=== PATIENT | male | born 1950 | race Caucasian/White ===

== ENCOUNTER 2018-04-02 12:25 | Day surgery (SDC) | payer OTHER, SELFPAY ==
--- NOTE | 2018-04-02 | PATH_ITS ---
[facility] Accession Number: [id number] . 01 Material submitted: . PART A: TRANSVERSE COLON POLYP AT 65 PART B: TRANSVERSE COLON POLYP 50 . 02 Diagnosis: A. Transverse Colon, Polyp at 65, Biopsy: Colonic mucosa with surface hyperplastic-type changes. Additional levels were examined. Negative for dysplasia and malignancy. . B. Transverse Colon, Polyp at 50, Biopsy: Polypoid granulation tissue, consistent with inflammatory polyp. MRV/04/06/2018 . 02 Electronically signed: . Andreia Olvera MD, Pathologist NPI- [id number] . 01 Gross description: . Received two formalin-filled containers both labeled with the patient's name. . A. In a container labeled transverse colon polyp at 65, the specimen consists of a 0.2 cm portion of tissue. Entirely submitted in cassette A. B. In a container labeled transverse colon polyp at 50, the specimen consists of a 0.3 cm portion of tissue. Entirely submitted in cassette B. ([facility] [place]:[id number]) /[facility] . 02 Pathologist provided ICD-10: K63.5 . 02 CPT . 686472, 141995 Performed at: 01 [facility] [address], [place], [place] [id number] MD Damon Santiago MD Phone: [phone] Performed at: 02 [facility] [place] [address] [place], [place] [id number] MD Andreia Olvera MD Phone: [phone]
[2018-04-02 13:06] VITALS: BP 142/78; PULSE 76; RESP 15; TEMP 36.3; O2SAT 97; BMI 25.9
[2018-04-02] MEDS: SODIUM CHLORIDE 0.9% 1,000 ML 200 ML IV (13:24)
--- NOTE | 2018-04-02 13:37 | PM.HP.1 ---
History of Present Illness Date Patient Seen: 04/02/18 Time Patient Seen: 13:37 Chief complaint: 63092 Colonoscopy Narrative: 68-year-old male who presents for colorectal screening. His last examination was 10 years ago. On further history today he denies any recent gastrointestinal symptoms. No nausea, vomiting, unexplained weight loss, abdominal pain, loss of appetite, change in bowel habits, diarrhea, constipation, melena, hematochezia, or bright red blood per rectum. Patient History Medical History Hypertension (Acute) Peripheral neuropathy (Acute) Surgical History History of colonoscopy (Acute) History of hernia repair (Acute) Social History household members: spouse Smoking Status: Former smoker Family & Social History Social History: household members spouse Tobacco & Substance use: Smoking Status Former smoker Meds Home Medications Medication Instructions Recorded Confirmed Type lisinopril 20 mg PO QDAY #0 06/28/11 04/02/18 History Allergies Allergy/AdvReac Type Severity Reaction Status Date / Time No Known Drug Allergies Allergy Verified 04/02/18 13:05 Review of Systems Review of Systems All systems reviewed & are unremarkable except as noted in HPI and below Exam Vital Signs (past 8 hours): - 04/02/18 13:06 Temperature 97.3 F L Pulse Rate 76 Respiratory Rate 15 Blood Pressure 142/78 H Pulse Oximetry 97 Oxygen Delivery Method Room Air Narrative Exam Narrative: Well-nourished well-developed male in no acute distress. Alert oriented x3. is at the bedside for my entire visit Sclera nonicteric Regular rate rhythm. No wheezes Abdomen soft, nondistended, nontender, no masses Extremities show no clubbing or cyanosis Objective Labs Labs: No recent laboratory or radiographic studies review Assessment & Plan Assessment & Plan narrative: 68-year-old male requiring colorectal screening since it has been 10 years from his last examination. Colonoscopy is once again recommended. Risks, benefits, alternatives were explained. Technical details of the procedure were discussed. Risks including but not limited to sedation, aspiration, bleeding, pain, missed lesion, incomplete examination, need for further radiographic studies, colonic perforation, need for major abdominal surgery, and all attendant risks of major surgery were explained in detail. All questions were answered to his satisfaction, and he voiced understanding. Consent was placed on the chart. We will proceed as above
--- NOTE | 2018-04-02 13:40 | PM.PREOP ---
Pre-operative Note Interval Note History & Physical reviewed/Exam performed by Physician: Yes Changes to H&P: No H&P completed within 30 days and has changed as indicated here:: Patient seen and examined. History and physical examination documented and placed on the chart. Obviously, there have been no changes in the last 15 min. Proceed with colonoscopy today as planned. ASA Class (for procedural sedation): II
--- NOTE | 2018-04-02 14:10 | PM.OP.ENDO ---
Operative Date/Time/Diagnoses Date of procedure: 04/02/18 Time of procedure: 14:10 Pre-op diagnosis: Colorectal screening Post-op diagnosis: other (Diverticulosis and colon polyps) Procedure & Clinicians Study performed: 1. Sedation per surgeon 2. Colonoscopy with hot snare polypectomy and cold forceps polypectomy Same procedure as scheduled: Yes Indications: 68-year-old male who presents for colorectal screening. His last examination was 10 years ago. Colonoscopy is once again recommended. Surgeon: Rodrigo Martinez Procedure Notes SCOAP/Timeout: Yes Procedure in detail: After obtaining informed consent, the patient was brought to the GI suite and placed in the left lateral decubitus position on the examination table. After placement of appropriate monitors, the patient was given incremental doses of Versed and Fentanyl until an appropriate level of sedation was achieved. A time out was held per SCOAP protocol. A digital rectal examination was performed and did not reveal any masses or obstructing lesions. The colonoscope was gently passed into the patient's anus and the entire colon navigated to the level of the cecum with minimal difficulty. Once in the cecum, the scope was withdrawn being sure to go before and beyond all mucosal folds and prominences and get an excellent examination. The findings are noted above. At the level of the rectal vault, the scope was retroflexed and the internal anal canal was examined. The scope was straightened and air aspirated from the colon. The instrument was removed from the patient's body and the procedure was concluded. The patient was allowed to awaken from sedation without difficulty and taken to the post-anesthesia care unit in good condition. Scope withdrawal time: 15:05 min Sedation minutes: 29 Findings: diverticulosis and polyp Specimen(s): other (1. Transverse colon polyp at 65 cm 2. Transverse colon polyp at 50 cm) Complications: none Recommendations: Colonscopy in 5 years, High fiber diet and Will call with biopsy results Plan for aftercare: 1. Discharge home Follow up: as needed Disposition: PACU
[2018-04-02 14:20] VITALS: BP 132/85; PULSE 74; RESP 20; TEMP 36.4; O2SAT 96
[2018-04-02] MEDS: MIDAZOLAM 5 MG/5 ML VIAL IV (14:38)
[2018-04-02] MEDS: fentaNYL 250 MCG/5 ML INJ IV (14:39)
== END 2018-04-02 14:30 | disposition home or self-care (01) ==
PROVIDERS: Family Provider Family Medicine; PCP Family Medicine; Visit Provider Surgery
PROC: 0DJD8ZZ Inspection of Lower Intestinal Tract, Via Natural or Artificial Opening Endoscopic (ICD-10-PCS; CPT 45378; principal; 2018-04-02 14:00)
DX: Z12.11 Encounter for screening for malignant neoplasm of colon (principal); K57.30 Diverticulosis of large intestine without perforation or abscess without bleeding; D12.3 Benign neoplasm of transverse colon; I10 Essential (primary) hypertension; Z87.891 Personal history of nicotine dependence; G62.9 Polyneuropathy, unspecified; K63.5 Polyp of colon
CPT/HCPCS: 45385; 45380; 99152; 99153; J2250; J3010

== ENCOUNTER 2019-01-20 07:25 | Day surgery (SDC) | payer OTHER, SELFPAY ==
--- NOTE | 2019-01-20 | PATH_ITS ---
[facility] Accession Number: [id number] . 01 Material submitted: . PART A: gastrointestinal site - GASTRIC BIOPSIES PART B: gastrointestinal site - GASTRIC EROSIONS BIOPSY PART C: gastrointestinal site - GASTRIC POLYPS BIOPSY . 01 Clinical history: . A. R/O CELIAC SPRUE B. R/O H. PYLORI . 02 Diagnosis: A. Designated Gastric, Biopsies: Duodenal mucosa with gastric heterotopia. Negative for intraepithelial lymphocytosis. Negative for dysplasia and malignancy. . B. Stomach, Erosions, Biopsy: Body-type mucosa with no diagnostic abnormality. Negative for Helicobacter by immunohistochemistry. Negative for intestinal metaplasia by alcian blue stain. Negative for dysplasia and malignancy. . C. Stomach, Polyps, Biopsy: Fundic gland polyp. No evidence of Helicobacter organisms on H/E stain. Negative for intestinal metaplasia. Negative for dysplasia and malignancy. [facility] 01/22/2019 1534 Local . 02 Electronically signed: . Andreia Olvera MD, Pathologist NPI- [id number] . 01 Gross description: . Part A: GASTRIC BIOPSIES: Received in formalin are 3 fragment(s) of pacheco, soft tissue measuring 0.3 x 0.2 x 0.2 cm to 0.2 x 0.2 x 0.1 cm submitted entirely in 1 cassette(s) Part B: GASTRIC EROSIONS BIOPSY: Received in formalin are 2 fragment(s) of pacheco, soft tissue measuring 0.3 x 0.2 x 0.2 cm to 0.1 x 0.1 x 0.1 cm submitted entirely in 1 cassette(s) Part C: GASTRIC POLYPS BIOPSY: Received in formalin is 1 fragment(s) of pacheco, soft tissue measuring 0.3 x 0.3 x 0.2 cm submitted entirely in 1 cassette(s) /[facility] 01/20/2019 2144 Local . 02 Microscopic: . B. An immunohistochemical stain was performed to evaluate for Helicobacter organisms and is negative. An alcian blue stain was performed to evaluate for intestinal metaplasia and is negative. Both control stains showed appropriate reactivity. . * This test was developed and its performance characteristics determined by [facility]. It has not been cleared or approved by the U.S. Food and Drug Administration. The FDA has determined that such clearance or approval is not necessary. This test is used for clinical purposes. It should not be regarded as investigational or for research. . 02 Pathologist provided ICD-10: R14.0, R19.7 . 02 CPT . 108295, 701005, 954131, 324807, [id number] Performed at: 01 [facility] [address] [id number] MD Damon Santiago MD Phone: [phone] Performed at: 02 [facility] [address] [place], [place] [id number] MD Andreia Olvera MD Phone: [phone]
[2019-01-20 07:40] VITALS: BP 150/78; PULSE 74; RESP 16; TEMP 36.1; O2SAT 96; BMI 27.9
[2019-01-20] MEDS: SODIUM CHLORIDE 0.9% 1,000 ML 200 ML IV (08:30)
--- NOTE | 2019-01-20 08:34 | PM.HP.1 ---
History of Present Illness History of Present Illness Chief complaint: [id number] Patient History Family & Social History Social History: household members spouse Tobacco & Substance use: Smoking Status Former smoker Meds Home Medications and Allergies Home Medications Medication Instructions Recorded Confirmed Type lisinopril 40 mg PO QDAY #0 06/28/11 01/20/19 History amlodipine 5 mg PO DAILY 01/20/19 01/20/19 History ascorbic acid (vitamin C) [Vitamin 500 mg PO DAILY 01/20/19 01/20/19 History C] calcium carbonate 260 mg PO DAILY 01/20/19 01/20/19 History cholecalciferol (vitamin D3) 3,000 unit PO DAILY 01/20/19 01/20/19 History [Vitamin D3] cyanocobalamin (vitamin B-12) mcg PO DAILY 01/20/19 History [Vitamin B-12] diphenhydramine HCl [Benadryl] 25 mg PO BEDTIME PRN 01/20/19 01/20/19 History loperamide 4 mg BID 01/20/19 01/20/19 History zinc sulfate 220 mg PO DAILY 01/20/19 01/20/19 History Allergies Allergy/AdvReac Type Severity Reaction Status Date / Time No Known Drug Allergies Allergy Verified 01/20/19 07:38 Review of Systems Review of Systems ROS Unobtainable: All systems reviewed & are unremarkable except as noted in HPI and below Exam Vital Signs (past 8 hours): - 01/20/19 07:40 Temperature 96.9 F L Pulse Rate 74 Respiratory Rate 16 Blood Pressure 150/78 H Pulse Oximetry 96 Oxygen Delivery Method Room Air Narrative Exam Narrative: Awake alert oriented x3, no acute distress, lungs clear, heart regular rate and rhythm, lower extremities without edema Assessment & Plan Assessment & Plan narrative: Bloating and diarrhea, for EGD
[2019-01-20] MEDS: MIDAZOLAM 5 MG/5 ML VIAL IV (08:45)
--- NOTE | 2019-01-20 08:45 | PM.OP.ENDO ---
Operative Date/Time/Diagnoses Date of procedure: 01/20/19 Procedure & Clinicians Study performed: EGD WITH BIOPSY Moderate conscious sedation was administered by the endoscopy nurse and supervised by the endoscopist. The following parameters were monitored: Oxygen saturation, heart rate, blood pressure, and response to care. Sedation dose: 4 mg midazolam, 100 mcg fentanyl Indications: Chronic diarrhea, bloating Procedure Notes Procedure in detail: Prior to the procedure, history and physical was performed, and patient medications and allergies were reviewed. Preprocedure nursing history and assessment was reviewed. Patient identification and proposed procedure were verified by the physician and nurse in the procedure room. The physical status of the patient was reassessed after the procedure. After informed consent was obtained including risks, benefits, and alternatives, the scope was passed under direct vision. Throughout the procedure, the patient's blood pressure, pulse, and oxygen saturations were monitored continuously. The upper endoscope was introduced through the mouth and advanced to the 2nd portion of the duodenum. Retroflexion was performed in the stomach. The patient tolerated the procedure well. The entire examined esophagus was normal appearing. The Z-line was regular and was located at 44 cm. A few small sessile polyps were noted in the fundus and body of the stomach. This was biopsied. A single gastric erosion with associated erythema was located in the antrum. This was biopsied to rule out H pylori A 12 mm submucosal nodule was seen in the antrum at the anterior wall. This was probed with the biopsy forceps and seemed to demonstrate a pillow sign. The entire examined duodenum was normal appearing. The ampulla was visualized and appeared normal. Biopsies were taken from the duodenum to rule out celiac sprue Impression: Normal esophagus and Z-line A few small gastric polyps, most likely representing fundic gland polyps. Biopsied Single gastric erosion. Biopsied. 12 mm antral submucosal nodule. Most likely represents a lipoma. Cannot rule out stromal tumor or other submucosal mass. Sedation minutes: 10 Complications: other (EBL minimal. No complications) Post-procedure Plan for aftercare: Follow-up pathology results Consider EUS for further evaluation of submucosal lesion in the antrum of the stomach Resume home medications Resume previous diet Follow-up in GI clinic Discharged home with escort
[2019-01-20 08:52] VITALS: BP 129/74; PULSE 67; RESP 14; TEMP 36.8; O2SAT 95
[2019-01-20] MEDS: fentaNYL 250 MCG/5 ML INJ 100 MCG IV (08:53)
[2019-01-20 08:57] VITALS: BP 119/78; PULSE 70; RESP 14; TEMP 36.8; O2SAT 96
[2019-01-20 09:01] VITALS: BP 133/73; PULSE 72; RESP 17; TEMP 36.8; O2SAT 94
[2019-01-20 09:13] VITALS: BP 131/80; PULSE 72; RESP 16; TEMP 35.9; O2SAT 93
== END 2019-01-20 09:25 | disposition home or self-care (01) ==
PROVIDERS: PCP Family Medicine; Visit Provider Internal Medicine
PROC: 0DJ08ZZ Inspection of Upper Intestinal Tract, Via Natural or Artificial Opening Endoscopic (ICD-10-PCS; CPT 43235; principal; 2019-01-20 08:30)
DX: R19.7 Diarrhea, unspecified (principal); R14.0 Abdominal distension (gaseous); I10 Essential (primary) hypertension; K31.7 Polyp of stomach and duodenum; Q43.8 Other specified congenital malformations of intestine
CPT/HCPCS: 43239; J2250; J3010

== ENCOUNTER → 2020-08-18 06:51 | Outpatient (CLI) | payer OTHER, SELFPAY ==
[2020-08-18 08:17] LABS: Add Manual Diff / Slide Review NO; Basophils Absolute Auto 100 /uL (0-100); Basophils Percent Auto 1.2 % (0-2); Eosinophils Absolute Auto 300 /uL (0-450); Eosinophils Percent Auto 4.7 % (2-4); Hematocrit 47.5 % (41-53); Hemoglobin 16.2 g/dL (13.5-17.5); Lymphocytes Absolute Auto 2600 /uL (1100-4500); Lymphocytes Percent Auto 37.5 % (25-40); Mean Corpuscular HGB Conc 34.1 % (30-36); Mean Corpuscular Hemoglobin 31.9 PG (26-34); Mean Corpuscular Volume 93.5 fL (80-100); Monocytes Absolute Auto 700 /uL (0-900); Monocytes Percent Auto 9.7 % (3-14); Neutrophils Absolute Auto 3300 /uL (1500-7000); Neutrophils Percent Auto 46.9 % (50-75); Platelet Count 199 X10^3/uL (150-400); Red Blood Cell Count 5.08 X10^6/uL (4.5-5.9); Red Cell Distribution Width 13.3 % (11.6-14.8); White Blood Cell Count 6.9 X10^3/uL (4.5-11.0)
[2020-08-18 09:47] LABS: Alanine Aminotransferase 37 IU/L (<50); Albumin 4.3 g/dL (3.5-5.0); Albumin Globulin Ratio 1.5 (1.0-2.8); Alkaline Phosphatase 72 U/L (38-126); Aspartate Aminotransferase 35 IU/L (17-59); Bilirubin Total 0.9 mg/dL (0.2-1.3); Blood Urea Nitrogen 13 mg/dL (9-20); Calcium 9.7 mg/dL (8.4-10.2); Carbon Dioxide 28 mmol/L (22-32); Chloride 107 mmol/L (98-107); Cholesterol 184 mg/dL (140-199); Estimated Glomerular Filt Rate > 60.0 mL/min (>60); Globulin 2.9 g/dL (1.7-4.1); Glucose 112 mg/dL (80-110); HDL Cholesterol 45 mg/dL (40-60); HEMOLYSIS < 15 (0-50); LDL Cholesterol Calculated 111 mg/dL (<100); Potassium 4.5 mmol/L (3.4-5.1); Sodium 141 mmol/L (137-145); Total Protein 7.2 g/dL (6.3-8.2); Triglycerides 139 mg/dL (35-150)
[2020-08-18 09:59] LABS: Vitamin D 25 Hydroxy (D3) 39.4 ng/mL (30.0-100.0)
[2020-08-18 10:16] LABS: Prostate Specific Antigen Scrn 0.715 ng/mL (0.1-4.0)
[2020-08-18 10:27] LABS: Microalbumi Creatinin Ratio Ur 6.8 ug/mg CR (<30); Microalbumin Urine Random 0.7 mg/dL (0-1.6)
== END ==
PROVIDERS: PCP Family Medicine; Referring Provider Family Medicine; Visit Provider Family Medicine
DX: E55.9 Vitamin D deficiency, unspecified (principal); I10 Essential (primary) hypertension; K63.5 Polyp of colon; Z12.5 Encounter for screening for malignant neoplasm of prostate
CPT/HCPCS: 36415; 80053; 80061; 82043; 82306; 82570; 85025; G0103

== ENCOUNTER 2020-11-05 15:46 | Emergency (ER) | payer OTHER, SELFPAY ==
[2020-11-05] VITALS (8 sets, daily range): BP systolic 157–186; BP diastolic 77–86; PULSE 61–78; RESP 20; TEMP 37; O2SAT 95–99
--- NOTE | 2020-11-05 16:28 | DI.CT.S_ITS ---
PROCEDURE: CT KIDNEY URETER BLADDER (KUB) INDICATIONS: left flank pain TECHNIQUE: Axial sections were acquired from the lung bases to the pubic symphysis. Coronal and sagittal reformats were performed. For radiation dose reduction, the following was used: automated exposure control, adjustment of mA and/or kV according to patient size. COMPARISON: None. FINDINGS: Image quality: Excellent. Lung bases: Unremarkable. Heart: No significant findings. URINARY: Right Kidney: No stones or hydronephrosis. Along the periphery of the right kidney, there is subcortical calcification seen, as on series 4, image 45. Right Ureter: No hydroureter. Left Kidney: There is mild left-sided hydronephrosis. There is a nonobstructing left-sided kidney stone seen inferiorly that measures up to 1.9 cm, as on series 2, image 45. At the superior pole of the left kidney, there is a water density cyst that measures 2.5 cm. Left Ureter: There is an obstructing stone seen involving the distal left ureter, as on series 2, image 86 and on series 4, image 43, measuring 2 mm. There is associated mild left-sided hydroureter. Bladder: Normal wall thickness. No stones. ABDOMEN: Liver: Unremarkable. Gallbladder: Unremarkable. Biliary ducts: Unremarkable. Pancreas: Unremarkable. Spleen: Unremarkable. Incidental note is made of an accessory splenule along the anterior aspect of the primary spleen. Adrenal Glands: Unremarkable. Stomach and Bowel: Stomach, small bowel loops, and colon are unremarkable. A normal appendix is incidentally noted. Minimal distal colonic diverticulosis is seen, without findings of active diverticulitis. Peritoneum: No abnormal intraperitoneal fluid. No free air. Ventral Wall: No hernia. Abdominal Nodes: No enlarged retroperitoneal or mesenteric lymph nodes. Vessels: Aorta and inferior vena cava are normal in size. PELVIS: Pelvic Organs: Unremarkable. Pelvic Nodes: Unremarkable. Miscellaneous: No inguinal hernias are seen. Bones: Unremarkable. IMPRESSION: 2 mm obstructing stone seen at the left ureterovesicular junction, with associated mild left-sided hydroureter and hydronephrosis. There is a 1.9 cm nonobstructing left-sided kidney stone seen inferiorly. Incidental note is made of: Accessory splenule Normal appendix Diverticulosis, without active diverticulitis Dictated by: Severino Nolasco M.D. on 11/05/2020 at 16:33 Approved by: Severino Nolasco M.D. on 11/05/2020 at 16:37
[2020-11-05 16:35] LABS: Add Manual Diff / Slide Review NO; Basophils Absolute Auto 100 /uL (0-100); Basophils Percent Auto 0.9 % (0-2); Eosinophils Absolute Auto 300 /uL (0-450); Eosinophils Percent Auto 2.4 % (2-4); Hematocrit 47.5 % (41-53); Hemoglobin 16.1 g/dL (13.5-17.5); Lymphocytes Absolute Auto 2200 /uL (1100-4500); Lymphocytes Percent Auto 17.7 % (25-40); Mean Corpuscular Hemoglobin 31.5 PG (26-34); Mean Corpuscular Volume 92.9 fL (80-100); Monocytes Absolute Auto 900 /uL (0-900); Monocytes Percent Auto 7.4 % (3-14); Neutrophils Absolute Auto 9000 /uL (1500-7000); Neutrophils Percent Auto 71.6 % (50-75); Platelet Count 229 X10^3/uL (150-400); Red Blood Cell Count 5.11 X10^6/uL (4.5-5.9); Red Cell Distribution Width 12.9 % (11.6-14.8); White Blood Cell Count 12.6 X10^3/uL (4.5-11.0)
[2020-11-05] MEDS: ONDANSETRON 4 MG/2 ML INJ IV (16:42)
[2020-11-05] MEDS: KETOROLAC 30 MG/ML VIAL 15 MG IV (16:42)
[2020-11-05 16:46] LABS: Alanine Aminotransferase 34 IU/L (<50); Albumin 4.9 g/dL (3.5-5.0); Albumin Globulin Ratio 1.4 (1.0-2.8); Alkaline Phosphatase 95 U/L (38-126); Aspartate Aminotransferase 31 IU/L (17-59); BUN Creatinine Ratio 21.8 (6-22); Bilirubin Total 0.6 mg/dL (0.2-1.3); Blood Urea Nitrogen 17 mg/dL (9-20); Calcium 9.9 mg/dL (8.4-10.2); Carbon Dioxide 27 mmol/L (22-32); Chloride 105 mmol/L (98-107); Estimated Glomerular Filt Rate > 60.0 mL/min (>60); Globulin 3.5 g/dL (1.7-4.1); Glucose 138 mg/dL (80-110); HEMOLYSIS 20 (0-50); Lipase 45 U/L (23-300); Sodium 142 mmol/L (137-145); Total Protein 8.4 g/dL (6.3-8.2)
[2020-11-05 17:12] LABS: Appearance Urine UA SL CLOUDY; Bilirubin Urine UA NEGATIVE (NEGATIVE); Color Urine UA YELLOW; Glucose Urine UA NEGATIVE (Negative); Ketones Urine UA NEGATIVE (NEGATIVE); Leukocyte Esterase Urine UA NEGATIVE (NEGATIVE); Nitrite Urine UA NEGATIVE (Negative); Occult Blood Urine UA 3+ (Negative); Protein Urine UA 1+ (Negative); Specific Gravity Urine UA 1.025 (1.000-1.035); Urobilinogen Urine UA 0.2 E.U./dL (0.2); pH Urine UA 5.5 (4.5-8.0)
--- NOTE | 2020-11-05 17:17 | ED.ABDPAIN ---
HPI - Abdominal Pain <HERNAN Amado - Last Filed: 11/05/20 20:25> General Chief Complaint: Abdominal Pain Stated Complaint: kidney stones Time Seen by Provider: 11/05/20 16:55 Source: patient and family Mode of arrival: Family Vehicle Limitations: no limitations History of Present Illness HPI narrative: 70-year-old male with history of hypertension presents to the ED for left-sided flank pain that started approximately 30 minutes after he voided and discovered blood in his urine. He reports that this started at 1:00 p.m. today, and then he had 1 episode of nausea, vomiting, and diarrhea. He has had persistent left posterior flank pain since this started and is concerned about kidney stones. He denies ever having history of kidney stones in the past, he denies having any chest pain, he denies shortness of breath, he denied any blood in his stool, and reports that diarrhea at is not a new thing for him. He denies having any recent fever, chills, or illnesses. He reports that his pain was an 8 or 9/10 until he received Toradol, and then it decreased to a 2 or 3/10 emergency department. Related Data Home Medications Medication Instructions Recorded Confirmed ascorbic acid (vitamin C) 500 mg 500 mg PO DAILY 01/20/19 06/29/20 tablet (Vitamin C) calcium carbonate 260 mg calcium 260 mg PO DAILY 01/20/19 06/29/20 (650 mg) chewable tablet cholecalciferol (vitamin D3) 50 3,000 unit PO DAILY 01/20/19 06/29/20 mcg (2,000 unit) tablet (Vitamin D3) cyanocobalamin (vitamin B-12) mcg PO DAILY 01/20/19 06/29/20 1,000 mcg tablet (Vitamin B-12) diphenhydramine HCl 25 mg capsule 25 mg PO BEDTIME PRN 01/20/19 06/29/20 (Benadryl) loperamide 2 mg tablet 4 mg BID 01/20/19 06/29/20 zinc sulfate 50 mg zinc (220 mg) 220 mg PO DAILY 01/20/19 06/29/20 capsule Previous Rx's Medication Instructions Recorded amlodipine 5 mg tablet 5 mg PO DAILY #90 tab 09/28/20 lisinopril 40 mg tablet 40 mg PO DAILY #90 tab 09/28/20 sildenafil 50 mg tablet 50 mg PO DAILY PRN #30 tab 09/29/20 ondansetron HCl 4 mg tablet 4 mg PO Q8H #10 tab 11/05/20 (Zofran) tamsulosin 0.4 mg capsule 0.4 mg PO DAILY #30 cap 11/05/20 Allergies Allergy/AdvReac Type Severity Reaction Status Date / Time No Known Drug Allergies Allergy Verified 06/29/20 14:30 Review of Systems <HERNAN Amado - Last Filed: 11/05/20 20:25> Review of Systems Narrative: General: denies fever, chills Head/Neck: denies headache, neck pain Eyes: denies visual changes, eye pain Cardio: denies chest pain, palpitations Respiratory: denies shortness of breath, cough GI: endorses left flank pain and nausea, no vomiting since 1329 : denies dysuria, hematuria MSK: denies joint pain, muscle weakness Skin: denies rash, itching Neuro: denies numbness, tingling Patient History <HERNAN Amado - Last Filed: 11/05/20 20:25> Medical History (Updated 11/05/20 @ 20:25 by HERNAN Amado) Chicken pox (~1957) Colon polyps (~2018) Erectile dysfunction Fractures Hearing loss (~2019) Hypertension (~1988) Kidney stone on left side Mumps (~1969) Peripheral neuropathy Seasonal allergies Tinnitus (~2016) Vitamin D deficiency Surgical History Anesthesia History of colonoscopy History of hernia repair (~1992) Family History Father Cancer Mother Cancer Social History household members: spouse Smoking Status: Former smoker Smoking Status: Former smoker alcohol intake frequency: 0-2 drinks per day Substance Use Type: does not use Exam <HERNAN Amado - Last Filed: 11/05/20 20:25> Narrative Exam Narrative: Independently reviewed vitals signs and nursing notes. General: Awake, alert, nontoxic, no cardiorespiratory distress Head/Neck: Atraumatic, neck full range of motion Eyes: EOMI, conjunctiva normal Nose: nares patent, no rhinorrhea Mouth/Throat: moist mucus membranes, posterior pharynx normal, no oral lesions Cardio: Regular rate and rhythm, no peripheral edema Respiratory: respirations unlabored without wheezing, stridor, or rales. No retractions. GI: Abdomen soft, right lower quadrant mildly tender to palpation, left CTA tenderness, no right CVA tenderness, no masses MSK: Moves all extremities, neurovascularly intact Skin: Normal capillary refill, no rash Neuro: Normal speech and cognition, normal gait Initial Vital Signs Initial Vital Signs: Vital Signs Pulse Rate 68 11/05/20 16:09 Blood Pressure 186/86 H 11/05/20 16:09 Pulse Oximetry 98 11/05/20 16:09 <Sharon Sloan DO - Last Filed: 11/10/20 07:21> Initial Vital Signs Initial Vital Signs: Vital Signs Pulse Rate 68 11/05/20 16:09 Blood Pressure 186/86 H 11/05/20 16:09 Pulse Oximetry 98 11/05/20 16:09 Course <HERNAN Amado - Last Filed: 11/05/20 20:25> Orders Ordered: Discontinued Medications Ketorolac Tromethamine (Ketorolac 30 Mg/Ml Vial) 15 mg IV NOW ONE Stop: 11/05/20 16:35 Last Admin: 11/05/20 16:42 Dose: 15 mg Documented by: JENARO Ondansetron HCl (Ondansetron 4 Mg/2 Ml Inj) 4 mg IV NOW ONE Stop: 11/05/20 16:28 Last Admin: 11/05/20 16:42 Dose: 4 mg Documented by: JENARO Ondansetron HCl (Ondansetron 4 Mg Odt Prepack) 1 bottle MISC SEEINSTR ONE Stop: 11/05/20 18:35 Last Admin: 11/05/20 19:13 Dose: 1 bottle Documented by: JENARO Tamsulosin HCl (Tamsulosin 0.4 Mg Capsule) 0.4 mg PO NOW ONE Stop: 11/05/20 18:34 Last Admin: 11/05/20 19:13 Dose: 0.4 mg Documented by: JENARO Consultations Consultation #1: Dr. Rios with urology was consulted for his left kidney stones. She would like patient to be sent with a strainer and a referral put into [facility] kidney stone clinic where he will be seen early this week. Vital Signs Vital signs: Vital Signs - 8 hr 11/05/20 16:09 11/05/20 16:29 11/05/20 16:30 Temperature 98.6 F Pulse Rate 68 63 61 Respiratory Rate 20 Blood Pressure 186/86 H 186/86 H Pulse Oximetry 98 97 99 11/05/20 17:00 11/05/20 17:31 11/05/20 18:00 Temperature Pulse Rate 68 78 69 Respiratory Rate Blood Pressure Pulse Oximetry 98 96 95 11/05/20 18:28 11/05/20 18:30 Temperature Pulse Rate 69 69 Respiratory Rate Blood Pressure 157/77 H 157/77 H Pulse Oximetry 96 97 <Sharon Sloan, - Last Filed: 11/10/20 07:21> Orders Ordered: Discontinued Medications Ketorolac Tromethamine (Ketorolac 30 Mg/Ml Vial) 15 mg IV NOW ONE Stop: 11/05/20 16:35 Last Admin: 11/05/20 16:42 Dose: 15 mg Documented by: JENARO Ondansetron HCl (Ondansetron 4 Mg/2 Ml Inj) 4 mg IV NOW ONE Stop: 11/05/20 16:28 Last Admin: 11/05/20 16:42 Dose: 4 mg Documented by: JENARO Ondansetron HCl (Ondansetron 4 Mg Odt Prepack) 1 bottle MISC SEEINSTR ONE Stop: 11/05/20 18:35 Last Admin: 11/05/20 19:13 Dose: 1 bottle Documented by: JENARO Tamsulosin HCl (Tamsulosin 0.4 Mg Capsule) 0.4 mg PO NOW ONE Stop: 11/05/20 18:34 Last Admin: 11/05/20 19:13 Dose: 0.4 mg Documented by: JENARO Vital Signs Vital signs: Vital Signs - 8 hr 11/05/20 16:09 11/05/20 16:29 11/05/20 16:30 Temperature 98.6 F Pulse Rate 68 63 61 Respiratory Rate 20 Blood Pressure 186/86 H 186/86 H Pulse Oximetry 98 97 99 11/05/20 17:00 11/05/20 17:31 11/05/20 18:00 Temperature Pulse Rate 68 78 69 Respiratory Rate Blood Pressure Pulse Oximetry 98 96 95 11/05/20 18:28 11/05/20 18:30 Temperature Pulse Rate 69 69 Respiratory Rate Blood Pressure 157/77 H 157/77 H Pulse Oximetry 96 97 MDM - Abdominal Pain <HERNAN Amado - Last Filed: 11/05/20 20:25> Lab Data Result diagrams: 11/05/20 16:20 11/05/20 16:20 Labs: Lab Results 11/05/20 11/05/20 11/05/20 Range/Units 16:20 16:20 16:25 WBC 12.6 H (4.5-11.0) X10^3/uL RBC 5.11 (4.5-5.9) X10^6/uL Hgb 16.1 (13.5-17.5) g/dL Hct 47.5 (41-53) % MCV 92.9 (80-100) fL MCH 31.5 (26-34) PG MCHC 34.0 (30-36) % RDW 12.9 (11.6-14.8) % Plt Count 229 (150-400) X10^3/uL Neut % (Auto) 71.6 (50-75) % Lymph % (Auto) 17.7 L (25-40) % [place] % (Auto) 7.4 (3-14) % Eos % (Auto) 2.4 (2-4) % Baso % (Auto) 0.9 (0-2) % Neut # (Auto) 9000 H (1039-9405) /uL Lymph # (Auto) 2200 (8925-8607) /uL [place] # (Auto) 900 (0-900) /uL Eos # (Auto) 300 (0-450) /uL Baso # (Auto) 100 (0-100) /uL Sodium 142 (137-145) mmol/L Potassium 4.0 (3.4-5.1) mmol/L Chloride 105 (98-107) mmol/L Carbon Dioxide 27 (22-32) mmol/L BUN 17 (9-20) mg/dL Creatinine 0.78 (0.66-1.25) mg/dL Estimated GFR > 60.0 (>60) mL/min BUN/Creatinine Ratio 21.8 (6-22) Glucose 138 H (80-110) mg/dL Calcium 9.9 (8.4-10.2) mg/dL Total Bilirubin 0.6 (0.2-1.3) mg/dL AST 31 (17-59) IU/L ALT 34 (<50) IU/L Alkaline Phosphatase 95 (38-126) U/L Total Protein 8.4 H (6.3-8.2) g/dL Albumin 4.9 (3.5-5.0) g/dL Globulin 3.5 (1.7-4.1) g/dL Albumin/Globulin Ratio 1.4 (1.0-2.8) Lipase 45 (23-300) U/L Urine Color Yellow Urine Appearance Sl cloudy Urine pH 5.5 (4.5-8.0) Ur Specific [place] 1.025 (1.000-1.035) Urine Protein 1+ H (Negative) Urine Glucose (UA) Negative (Negative) g/dL Urine Ketones Negative (NEGATIVE) Urine Occult Blood 3+ H (Negative) Urine Nitrate Negative (Negative) Urine Bilirubin Negative (NEGATIVE) Urine Urobilinogen 0.2 (0.2) E.U./dL Ur Leukocyte Esterase Negative (NEGATIVE) Urine RBC >100/hpf H (0-5/HPF) Urine WBC 0-1/hpf (0-5/HPF) Ur Squamous Epith Cells 5-10 /hpf H (0-5/HPF) Amorphous Sediment 2+ Urine Bacteria None seen (None) Ur Culture Indicated? Cult not indicated Imaging Data CT scan - abdomen/pelvis: Radiologist's Impression: PROCEDURE:? CT KIDNEY URETER BLADDER (KUB) ? INDICATIONS:? left flank pain ? TECHNIQUE:? Axial sections were acquired from the lung bases to the pubic symphysis.? Coronal and sagittal reformats were performed.? For radiation dose reduction, the following was used: ?automated exposure control, adjustment of mA and/or kV according to patient size.? ? COMPARISON:? ? None. ? FINDINGS:? Image quality:? Excellent.? ? Lung bases:? Unremarkable.? ? Heart:? No significant findings. ? URINARY: Right Kidney: ? No stones or hydronephrosis.? Along the periphery of the right kidney, there is subcortical calcification seen, as on series 4, image 45. Right Ureter:? No hydroureter.? ? Left Kidney:? There is mild left-sided hydronephrosis.? There is a nonobstructing left-sided kidney stone seen inferiorly that measures up to 1.9 cm, as on series 2, image 45. At the superior pole of the left kidney, there is a water density cyst that measures 2.5 cm. Left Ureter:? There is an obstructing stone seen involving the distal left ureter, as on series 2, image 86 and on series 4, image 43, measuring 2 mm.? There is associated mild left-sided hydroureter.? ? Bladder:? Normal wall thickness. No stones. ? ? ? ABDOMEN: Liver:? Unremarkable.? ? Gallbladder:? Unremarkable.? ? Biliary ducts:? Unremarkable.? ? Pancreas:? Unremarkable.? ? Spleen:? Unremarkable.? ? Incidental note is made of an accessory splenule along the anterior aspect of the primary spleen. Adrenal Glands:? Unremarkable.? ? ? Stomach and Bowel:? Stomach, small bowel loops, and colon are unremarkable.? A normal appendix is incidentally noted.? Minimal distal colonic diverticulosis is seen, without findings of active diverticulitis. Peritoneum:? No abnormal intraperitoneal fluid.? No free air.? ? Ventral Wall: ? No hernia.? Abdominal Nodes:? No enlarged retroperitoneal or mesenteric lymph nodes.? Vessels:? Aorta and inferior vena cava are normal in size.? ? PELVIS: Pelvic Organs:? Unremarkable.? ? Pelvic Nodes: Unremarkable. Miscellaneous: No inguinal hernias are seen. ? ? ? Bones:? Unremarkable. ? ? IMPRESSION:? ? 2 mm obstructing stone seen at the left ureterovesicular junction, with associated mild left-sided hydroureter and hydronephrosis. ? There is a 1.9 cm nonobstructing left-sided kidney stone seen inferiorly.? ? Incidental note is made of: Accessory splenule Normal appendix Diverticulosis, without active diverticulitis ? Dictated by: Severino Nolasco M.D. on 11/05/2020 at 16:33 ? ? Approved by: Severino Nolasco M.D. on 11/05/2020 at 16:37 ? MDM Narrative Medical decision making narrative: This is pleasant 70-year-old male with history of hypertension presents to the ED for left-sided flank pain and hematuria that started at 1300. His history and exam were suggestive of possible kidney stones, a CT KUB noncontrast was obtained showing mild left-sided hydronephrosis, a nonobstructing left-sided kidney stone seen inferiorly that measures up to 1.9 cm, as well as a obstructing stone seen at the left ureterovesicular junction with mild left-sided hydroureter and hydronephrosis. After consultation with Dr. Rios from Urology, patient was given strict ER precautions to return if fever, nausea vomiting, worsening pain or any other concerning symptoms. He was referred to [facility] kidney stone clinic and they will be calling him for an appointment this week. Recommendation was to provide a strainer, prescribe tamsulosin, and he will be seen there early this week. Because his mild leukocytosis could be attributed to inflammation, his creatinine was within normal limits, his pain was controlled with 1 dose of Toradol, and his nausea and vomiting was resolved after 1 dose of Zofran, Dr. Rios was comfortable allowing him to discharge home and be seen early this week as an outpatient. Patient is appropriate and amenable to discharge home. Vital signs are stable on repeat examination is unremarkable. Patient has been informed of results. Patient has been given strict return to ER precautions for any new or worsening symptoms. Patient understands to follow up closely with outpatient providers as instructed. Patient understands plan and agrees to discharge home. All questions and concerns answered at this time. <Sharon Sloan, DO - Last Filed: 11/10/20 07:21> Lab Data Labs: Lab Results 11/05/20 11/05/20 11/05/20 Range/Units 16:20 16:20 16:25 WBC 12.6 H (4.5-11.0) X10^3/uL RBC 5.11 (4.5-5.9) X10^6/uL Hgb 16.1 (13.5-17.5) g/dL Hct 47.5 (41-53) % MCV 92.9 (80-100) fL MCH 31.5 (26-34) PG MCHC 34.0 (30-36) % RDW 12.9 (11.6-14.8) % Plt Count 229 (150-400) X10^3/uL Neut % (Auto) 71.6 (50-75) % Lymph % (Auto) 17.7 L (25-40) % [place] % (Auto) 7.4 (3-14) % Eos % (Auto) 2.4 (2-4) % Baso % (Auto) 0.9 (0-2) % Neut # (Auto) 9000 H (3454-3589) /uL Lymph # (Auto) 2200 (1639-3875) /uL [place] # (Auto) 900 (0-900) /uL Eos # (Auto) 300 (0-450) /uL Baso # (Auto) 100 (0-100) /uL Sodium 142 (137-145) mmol/L Potassium 4.0 (3.4-5.1) mmol/L Chloride 105 (98-107) mmol/L Carbon Dioxide 27 (22-32) mmol/L BUN 17 (9-20) mg/dL Creatinine 0.78 (0.66-1.25) mg/dL Estimated GFR > 60.0 (>60) mL/min BUN/Creatinine Ratio 21.8 (6-22) Glucose 138 H (80-110) mg/dL Calcium 9.9 (8.4-10.2) mg/dL Total Bilirubin 0.6 (0.2-1.3) mg/dL AST 31 (17-59) IU/L ALT 34 (<50) IU/L Alkaline Phosphatase 95 (38-126) U/L Total Protein 8.4 H (6.3-8.2) g/dL Albumin 4.9 (3.5-5.0) g/dL Globulin 3.5 (1.7-4.1) g/dL Albumin/Globulin Ratio 1.4 (1.0-2.8) Lipase 45 (23-300) U/L Urine Color Yellow Urine Appearance Sl cloudy Urine pH 5.5 (4.5-8.0) Ur Specific [place] 1.025 (1.000-1.035) Urine Protein 1+ H (Negative) Urine Glucose (UA) Negative (Negative) g/dL Urine Ketones Negative (NEGATIVE) Urine Occult Blood 3+ H (Negative) Urine Nitrate Negative (Negative) Urine Bilirubin Negative (NEGATIVE) Urine Urobilinogen 0.2 (0.2) E.U./dL Ur Leukocyte Esterase Negative (NEGATIVE) Urine RBC >100/hpf H (0-5/HPF) Urine WBC 0-1/hpf (0-5/HPF) Ur Squamous Epith Cells 5-10 /hpf H (0-5/HPF) Amorphous Sediment 2+ Urine Bacteria None seen (None) Ur Culture Indicated? Cult not indicated Discharge Plan Departure Patient Disposition: Home Clinical Impression: Kidney stone on left side, Hydronephrosis concurrent with and due to calculi of kidney and ureter Instructions: DI for Kidney Stones Activity Restrictions/Additional Instructions: *You have been diagnosed with 1 small and 1 large kidney stone in your left kidney. Please start taking the Flomax tomorrow daily, and take ibuprofen 600 mg every 6 hours for pain, and he can take Tylenol with that. Please stay hydrated, you must return to the emergency department if he develops fever, worsening flank pain, nausea or vomiting, or any other concerning symptoms. *What to do: *Please continue to take your regular medications as directed. [ x] New medication prescriptions sent to your pharmacy: [[facility]] [ ] New medication written as a paper prescription [ ] No new medications given *Please follow up with your primary care provider in 2-3 days, call for an appointment. Let them know you were seen in the Emergency Department and that we ask that you be seen in follow up. We will electronically transmit a record of today's note if your PCP is in our system *If you do not have a primary care provider please contact the [facility] Resource line at [phone]. They will ask some questions about your medical history and help get you set up with a doctor in the community. *Return to Emergency Department if you should have any new, worsening or concerning symptoms, such as [fever greater than 101F, chills, worsening pain, persistent vomiting or other bothersome symptoms] Prescriptions: New tamsulosin 0.4 mg capsule 0.4 mg PO DAILY Qty: 30 RF: 0 ondansetron HCl [Zofran] 4 mg tablet 4 mg PO Q8H Qty: 10 RF: 0 No Action amlodipine 5 mg tablet 5 mg PO DAILY Qty: 90 RF: 3 lisinopril 40 mg tablet 40 mg PO DAILY Qty: 90 RF: 3 sildenafil 50 mg tablet 50 mg PO DAILY PRN (Reason: sexual activity) Qty: 30 RF: 3 loperamide 2 mg Tablet 4 mg BID RF: 0 cyanocobalamin (vitamin B-12) [Vitamin B-12] 1,000 mcg Tablet PO DAILY RF: 0 ascorbic acid (vitamin C) [Vitamin C] 500 mg Tablet 500 mg PO DAILY RF: 0 diphenhydramine HCl [Benadryl] 25 mg Capsule 25 mg PO BEDTIME PRN (Reason: Abdominal Discomfort) RF: 0 zinc sulfate 220 (50) mg Capsule 220 mg PO DAILY RF: 0 cholecalciferol (vitamin D3) [Vitamin D3] 2,000 unit Tablet 3,000 unit PO DAILY RF: 0 calcium carbonate 260 mg calcium (650 mg) Tablet,Chewable 260 mg PO DAILY RF: 0 Referrals: Elena Rios MD [Non-Staff] - (The Kidney stone clinic at [facility] is: [facility] [place] [facility] [place], [address], [address], [place] [address] phone number is: , they should call you in the next day or two) Shabbir Emanuel MD [Primary Care Provider] - Stand Alone Forms: Work Release Note <Sharon Sloan DO - Last Filed: 11/10/20 07:21> Cosign ED Attending Coswillature Attestation: I was immediately available in the department for consultation. Documentation has been reviewed. I agree with assessment and plan.
[2020-11-05 17:19] LABS: Amorphous Sediment Urine 2+; RBC Urine >100/HPF (0-5/HPF); Squamous Epithelial Cell Urine 5-10 /HPF (0-5/HPF); WBC Urine 0-1/HPF (0-5/HPF)
[2020-11-05 17:20] LABS: Bacteria Urine None Seen; Culture Indicated Urine Cult Not Indicated
[2020-11-05] MEDS: TAMSULOSIN 0.4 MG CAPSULE PO (19:13)
[2020-11-05] MEDS: ONDANSETRON 4 MG ODT PREPACK 1 BOTTLE MISC (19:13)
== END 2020-11-05 18:40 | disposition home or self-care (01) ==
PROVIDERS: Emergency Medicine; Emergency Provider Nurse Practitioner Critical Care Medicine; PCP Family Medicine
DX: N20.0 Calculus of kidney (principal); N13.30 Unspecified hydronephrosis
CPT/HCPCS: 36415; 74176; 80053; 81001; 83690; 85025; 96374; 96375; 99284; J1885; J2405

== ENCOUNTER → 2020-11-10 11:37 | Outpatient (CLI) | payer OTHER, SELFPAY ==
[2020-11-16 08:36] LABS: Size 3x2 mm (.); Uric Acid 100 % (.)
== END ==
PROVIDERS: PCP Family Medicine; Visit Provider Specialist
DX: N20.0 Calculus of kidney (principal)
CPT/HCPCS: 82365

== ENCOUNTER → 2021-02-13 15:32 | Outpatient (CLI) | payer OTHER, SELFPAY ==
--- NOTE | 2021-02-13 15:34 | DI.RAD.S_ITS ---
PROCEDURE: XR KUB INDICATIONS: kidney stones TECHNIQUE: One view of the abdomen acquired. COMPARISON: [facility], CT, CT KIDNEY URETER BLADDER (KUB), 11/05/2020, 16:35. FINDINGS: Surgical changes and devices: None. Bowel: Bowel gas pattern is nonobstructive. Soft tissues: No suspicious abdominal calcifications. Visualized solid organ contours appear normal in size. Numerous flecks of radiodense opacities project throughout the colon compatible with ingested material seen on comparison CT. There is a persistent 1.5 cm calcification projecting over the left renal shadow compatible with previously seen nephrolith. Previously described 2 mm distal left ureteral stone is not definitively identified. Bones: No suspicious bony lesions. IMPRESSION: Persistent 1.5 cm calcification projects over the left renal shadow compatible with previously described nonobstructing nephrolith. Previously described obstructing 2 mm distal left ureteral stone is not definitively seen and presumably passed. Multiple, tiny flecks of radiodense material project over the expected colon compatible with radiopaque ingested material seen on comparison CT. Dictated by: James Ritchie M.D. on 02/13/2021 at 17:02 Approved by: James Ritchie M.D. on 02/13/2021 at 17:05
[2021-02-13 16:57] LABS: BUN Creatinine Ratio 22.8 (6-22); Blood Urea Nitrogen 18 mg/dL (9-20); Calcium 9.8 mg/dL (8.4-10.2); Carbon Dioxide 27 mmol/L (22-32); Chloride 104 mmol/L (98-107); Estimated Glomerular Filt Rate > 60.0 mL/min (>60); Glucose 105 mg/dL (80-110); HEMOLYSIS < 15 (0-50); Potassium 4.2 mmol/L (3.4-5.1); Sodium 139 mmol/L (137-145)
[2021-02-13 17:29] LABS: Prostate Specific Antigen Scrn 0.843 ng/mL (0.1-4.0)
== END ==
PROVIDERS: PCP Family Medicine; Referring Provider Specialist; Visit Provider Specialist
DX: N20.0 Calculus of kidney (principal); N52.9 Male erectile dysfunction, unspecified; R97.20 Elevated prostate specific antigen [PSA]
CPT/HCPCS: 36415; 74018; 80048; G0103

== ENCOUNTER → 2021-02-21 15:18 | Outpatient (CLI) | payer OTHER, SELFPAY ==
[2021-02-21 17:22] LABS: Uric Acid 4.7 mg/dL (3.5-8.5)
[2021-02-22 08:36] LABS: Parathyroid Hormone Int 41 pg/mL (15-65)
== END ==
PROVIDERS: PCP Family Medicine; Referring Provider Specialist; Visit Provider Specialist
DX: N20.0 Calculus of kidney (principal)
CPT/HCPCS: 36415; 83970; 84550

== ENCOUNTER 2021-05-23 08:03 | Emergency (ER) | payer OTHER, SELFPAY ==
[2021-05-23] VITALS (12 sets, daily range): BP systolic 133–175; BP diastolic 60–89; PULSE 60–73; RESP 13–19; TEMP 36.6; O2SAT 93–99; BMI 29.0
--- NOTE | 2021-05-23 08:13 | ED_ITS ---
HPI - Abdominal Pain General Chief Complaint: Back Pain/Injury Stated Complaint: stated - passing kidney stone Time Seen by Provider: 05/23/21 08:10 History of Present Illness HPI narrative: Patient is a 71-year-old male who has history of hypertension and recent right eye surgery presenting today with back pain and suprapubic pain. He says this started yesterday. He started having some blood in his urine as well. He denies any flank pain. He feels like he has to urinate frequently. Initially he had some gross blood but it has lightened in is back to normal urine. He feels nauseous he has not had any vomiting. Due to his recent eye surgery he is needed to keep his head down, which he thinks is prompted some of the nausea. He denies any fever or chills. No vomiting. He has no chest pain. Related Data Home Medications Medication Instructions Recorded Confirmed ascorbic acid (vitamin C) 500 mg 500 mg PO DAILY 01/20/19 02/28/21 tablet (Vitamin C) calcium carbonate 260 mg calcium 260 mg PO DAILY 01/20/19 02/28/21 (650 mg) chewable tablet cholecalciferol (vitamin D3) 50 3,000 unit PO DAILY 01/20/19 02/28/21 mcg (2,000 unit) tablet (Vitamin D3) cyanocobalamin (vitamin B-12) mcg PO DAILY 01/20/19 02/28/21 1,000 mcg tablet (Vitamin B-12) diphenhydramine HCl 25 mg capsule 25 mg PO BEDTIME PRN 01/20/19 02/28/21 (Benadryl) loperamide 2 mg tablet 4 mg BID 01/20/19 02/28/21 zinc sulfate 50 mg zinc (220 mg) 220 mg PO DAILY 01/20/19 02/28/21 capsule Previous Rx's Medication Instructions Recorded amlodipine 5 mg tablet 5 mg PO DAILY #90 tab 09/28/20 lisinopril 40 mg tablet 40 mg PO DAILY #90 tab 09/28/20 sildenafil 50 mg tablet 50 mg PO DAILY PRN #30 tab 09/29/20 ondansetron HCl 4 mg tablet 4 mg PO Q8H #10 tab 11/05/20 (Zofran) tamsulosin 0.4 mg capsule 0.4 mg PO DAILY #30 cap 09/26/21 cephalexin 500 mg capsule 500 mg PO BID 7 Days #14 cap 05/23/21 hydrocodone 5 mg-acetaminophen 325 1 tab PO Q6H PRN #10 tab 05/23/21 mg tablet ondansetron 4 mg disintegrating 4 mg PO Q8H PRN #10 tab 05/23/21 tablet Allergies Allergy/AdvReac Type Severity Reaction Status Date / Time No Known Drug Allergies Allergy Verified 02/28/21 15:45 Review of Systems Review of Systems Narrative: GENERAL: Denies chills, fatigue, malaise, fever, sweats, travel HEENT: Denies sinus pain, ear pain, sore throat, difficulty swallowing, neck pain RESPIRATORY: Denies dyspnea, cough, wheezing, hemoptysis, sputum. CARDIOVASCULAR: Denies chest pain, palpitations, orthopnea, edema GASTROINTESTINAL: See HPI : See HPI MUSCULOSKELETAL: Denies weakness, joint pain, or bony pain SKIN: No rash, no erythema, no pruritus NEUROLOGIC: Denies weakness, dizziness, headache, numbness, change in speech, confusion PSYCHIATRIC: No concerning psychosocial issues. 12 point review of systems is negative except for those stated above and HPI Patient History Medical History Chicken pox (~195) Colon polyps (~2018) Erectile dysfunction Fractures Hearing loss (~2019) Hypertension (~1988) Kidney stone on left side Left nephrolithiasis Mumps (~1969) Peripheral neuropathy Seasonal allergies Tinnitus (~2016) Vitamin D deficiency Surgical History Anesthesia History of colonoscopy History of hernia repair (~1992) Family History Father Cancer Mother Cancer Social History household members: spouse Smoking Status: Former smoker Smoking Status: Former smoker alcohol intake frequency: 0-2 drinks per day Substance Use Type: does not use Exam Initial Vital Signs Initial Vital Signs: Vital Signs Pulse Rate 72 05/23/21 08:10 Blood Pressure 175/89 H 05/23/21 08:10 Pulse Oximetry 97 05/23/21 08:10 GENERAL: Alert 71-year-old male appears uncomfortable HEENT: Head atraumatic,EOMI, pupils reactive, right eye covered, face symmetric, [moist] mucous membranes CARDIOVASCULAR: Regular rate and rhythm without murmurs, rubs or gallops. RESPIRATORY: Breath sounds equal bilaterally, no wheezes rales or rhonchi. ABDOMEN: Soft, mild suprapubic pain BACK: No vertebral tenderness : No CVA tenderness EXTREMITIES: Normal range of motion, no clubbing or edema. Neurovascularly intact NEUROLOGICAL: Alert and oriented x4.Normal gait and speech. SKIN: Warm, dry, no laceration, no petechiae, no rashes or lesions. Course Orders Ordered: Discontinued Medications Hydromorphone HCl (Hydromorphone 0.5 Mg Inj) 0.5 mg IV NOW ONE Stop: 05/23/21 10:03 Last Admin: 05/23/21 10:05 Dose: 0.5 mg Documented by: MARTINE Sodium Chloride (Normal Saline 0.9%) 1,000 mls @ 1,000 mls/hr IV CONT RACHELL Last Infusion: 05/23/21 10:40 Dose: 0 mls/hr Documented by: Admin: 05/23/21 09:03 Dose: 1,000 mls/hr Documented by: COURTNEY Ketorolac Tromethamine (Ketorolac 30 Mg/Ml Vial) 15 mg IV NOW ONE Stop: 05/23/21 10:32 Last Admin: 05/23/21 10:44 Dose: 15 mg Documented by: COURTNEY Morphine Sulfate (Morphine 2 Mg/Ml Inj) 2 mg IV NOW ONE Stop: 05/23/21 08:33 Last Admin: 05/23/21 09:03 Dose: 2 mg Documented by: COURTNEY Ondansetron HCl (Ondansetron 4 Mg/2 Ml Inj) 4 mg IV NOW ONE Stop: 05/23/21 08:30 Last Admin: 05/23/21 09:03 Dose: 4 mg Documented by: COURTNEY Vital Signs Vital signs: Vital Signs - 8 hr 05/23/21 11:00 05/23/21 11:30 Pulse Rate 61 70 Respiratory Rate 16 17 Blood Pressure 133/60 Pulse Oximetry 95 95 MDM - Abdominal Pain Lab Data Result diagrams: 05/23/21 08:48 05/23/21 08:48 Labs: Lab Results 04/13/22 04/13/22 04/13/22 Range/Units 08:42 08:48 08:48 WBC 10.7 (4.5-11.0) X10^3/uL RBC 4.83 (4.5-5.9) X10^6/uL Hgb 15.5 (13.5-17.5) g/dL Hct 45.0 (41-53) % MCV 93.0 (80-100) fL MCH 32.1 (26-34) PG MCHC 34.5 (30-36) % RDW 13.4 (11.6-14.8) % Plt Count 220 (150-400) X10^3/uL Neut % (Auto) 70.1 (50-75) % Lymph % (Auto) 16.0 L (25-40) % [place] % (Auto) 10.1 (3-14) % Eos % (Auto) 3.1 (2-4) % Baso % (Auto) 0.7 (0-2) % Neut # (Auto) 7500 H (7850-5938) /uL Lymph # (Auto) 1700 (9630-0321) /uL [place] # (Auto) 1100 H (0-900) /uL Eos # (Auto) 300 (0-450) /uL Baso # (Auto) 100 (0-100) /uL Sodium 143 (137-145) mmol/L Potassium 3.7 (3.4-5.1) mmol/L Chloride 103 (98-107) mmol/L Carbon Dioxide 28 (22-32) mmol/L BUN 13 (9-20) mg/dL Creatinine 0.86 (0.66-1.25) mg/dL Estimated GFR > 60 (>60) mL/min BUN/Creatinine Ratio 15.1 (6-22) Glucose 140 H (80-110) mg/dL Calcium 9.2 (8.4-10.2) mg/dL Total Bilirubin 0.7 (0.2-1.3) mg/dL AST 36 (17-59) IU/L ALT 49 (<50) IU/L Alkaline Phosphatase 78 (38-126) U/L Total Protein 8.1 (6.3-8.2) g/dL Albumin 4.8 (3.5-5.0) g/dL Globulin 3.3 (1.7-4.1) g/dL Albumin/Globulin Ratio 1.5 (1.0-2.8) Lipase 36 (23-300) U/L Urine Color Yellow Urine Appearance Clear Urine pH 5.0 (4.5-8.0) Ur Specific [place] 1.020 (1.000-1.035) Urine Protein Negative (Negative) Urine Glucose (UA) Negative (Negative) g/dL Urine Ketones Negative (NEGATIVE) Urine Occult Blood 3+ H (Negative) Urine Nitrate Negative (Negative) Urine Bilirubin Negative (NEGATIVE) Urine Urobilinogen 0.2 (0.2) E.U./dL Ur Leukocyte Esterase Negative (NEGATIVE) Urine RBC >100/hpf H (0-5/HPF) Urine WBC 1-5/hpf (0-5/HPF) Ur Squamous Epith Cells 1-5 /hpf (0-5/HPF) Urine Bacteria Many (>30) H (None) Ur Culture Indicated? Cult not indicated Imaging Data CT scan - abdomen/pelvis: Radiologist's Impression: PROCEDURE:? CT ABDOMEN PELVIS W CON ? INDICATIONS:? back and suprapubic pain ? TECHNIQUE:? After the administration of intravenous contrast, axial sections acquired from the lung bases to the pubic symphysis.? Coronal and sagittal reformats were performed.? For radiation dose reduction, the following was used:? automated exposure control, adjustment of mA and/or kV according to patient size.? ? COMPARISON:? Merged With [facility], CT, CT KIDNEY URETER BLADDER (KUB), 11/05/2020, 16:35. ? FINDINGS:? Image quality:? Excellent.? ? Lung bases:? Unremarkable. Heart:? No significant findings. ? ABDOMEN: Liver:? Diffusely decreased hepatic density.? Gallbladder:? Unremarkable.? ? Biliary ducts:? Unremarkable.? ? Pancreas:? Unremarkable.? ? Spleen:? Unremarkable.? ? Adrenal Glands:? Unremarkable.? ? Kidneys and Ureters:? Bilateral renal cysts are present.? Nonobstructing left inferior pole renal calculus measuring 15 mm.? Cortical calcification involving the inferior pole right kidney laterally measuring 5 mm.? No right hydronephrosis nor ureteral dilatation.? There is mild left hydronephrosis and left ureteral dilatation.? There is a 3 mm calculus at the left ureterovesical junction.? ? Stomach and Bowel:? Small hiatal hernia.? Moderate thickening of the distal esophagus.? Stomach, small bowel loops, and colon are unremarkable.? Normal appendix. Peritoneum:? No abnormal intraperitoneal fluid.? No free air.? ? Ventral Wall: ? No hernias.? Abdominal Nodes:? Mildly prominent portal caval lymph node measuring 12 mm, and peripancreatic lymph node measuring 12 mm, which are unchanged. Vessels:? Aorta and inferior vena cava are normal in size.? ? PELVIS: Pelvic Organs:? Unremarkable.? ? Bladder:? Unremarkable.? ? Pelvic Nodes: No enlarged lymph nodes.? Miscellaneous: No hernias are seen. ? ? ? Bones:? Unremarkable.? IMPRESSION:? 1. Left ureterovesical junction calculus associated with mild left hydronephrosis. 2. Nonobstructing bilateral intrarenal calcifications. 3. Thickening of the distal esophagus with hiatal hernia.? Initial further assessment with endoscopy is recommended. 4. Mildly enlarged portal caval and peripancreatic lymph nodes are unchanged.? Hepatic steatosis.? ? ? Dictated by: Janet Jackson M.D. on 05/23/2021 at 10:12 ? ? MDM Narrative Medical decision making narrative: Patient initially presents with centralized back pain and suprapubic pain with hematuria. Not classic of kidney stones. However CT does confirm multiple stones including a left 3 mm ureteral stone at the UVJ. He has other large stones noted in both right and left kidneys. Patient is aware very large 1 in the left kidney. He does have some bacteria in urine I will give him some antibiotics for this reason is but no leukocytes or nitrates. He has Flomax at home. I recommend he continue to take it. The pain initially was controlled after morphine and dilaudid however it started coming back he is given Toradol which seems to have helped him the most. Discharge Plan Departure Patient Disposition: Home Clinical Impression: Kidney stones Instructions: DI for Kidney Stones Activity Restrictions/Additional Instructions: *You have been diagnosed with kidney stone on left side 3 mm *What to do: Fever found to a large stone in the left kidney measuring 15 mm and her right kidney stone measuring 5 mm. These are currently not moving. Anticipate that he passed a 3 mm stone in the next couple of days. Be sure to stay hydrated. *Continue to take medications as directed Ibuprofen 600 mg every 8 hours, next dose due at 7:00 p.m. [place] 1 tablet every 6 hours if needed for severe pain Zofran 4 mg every 8 hours if needed for nausea or vomiting Keflex 500 mg twice a day for 7 days, for some bacteria in your urine Flomax 0.4 mg once a day *Follow up with your primary care provider in 2-3 days or call [phone] *Return to ER if you should have increasing pain, fever, unable to take medicine or any new, worsening or concerning symptoms CONTROLLED SUBSTANCE DISCHARGE (Narcotoic/benzodiazepine/Flexeril/Phenergan) 1. You have been prescribed narcotic medications, it does have acetaminoph en/Tylenol/paracetamol in it, DO NOT TAKE MORE THAN 4,00mg in 24 hours of Tylenol. TRAMADOL DOES NOT CONTAIN TYLENOL 2. Please understand that we cannot provide further refills of narcotics, benzo diazepines or controlled substances through the ED and her pain management will need to be through your provider. 3. While on these medications you cannot drive or operate heavy machinery. 4. You cannot sign legal documents or perform any duties such as this. 5. As long as you're taking opiate pain medications he should also be taking a stool softener such as Colace, Dulcolax, MiraLAX or prune juice, to help avoid constipation. Prescriptions: New hydrocodone-acetaminophen 5-325 mg tablet 1 tab PO Q6H PRN (Reason: pain) Qty: 10 0RF cephalexin 500 mg capsule 500 mg PO BID 7 Days Qty: 14 0RF ondansetron 4 mg tablet,disintegrating 4 mg PO Q8H PRN (Reason: nausea and vomiting) Qty: 10 0RF No Action amlodipine 5 mg tablet 5 mg PO DAILY Qty: 90 3RF lisinopril 40 mg tablet 40 mg PO DAILY Qty: 90 3RF sildenafil 50 mg tablet 50 mg PO DAILY PRN (Reason: sexual activity) Qty: 30 3RF Rx Instructions: administer 1-2 tabs 30 minutes to 4 hours before activity loperamide 2 mg Tablet 4 mg BID 0RF cyanocobalamin (vitamin B-12) [Vitamin B-12] 1,000 mcg Tablet PO DAILY 0RF ascorbic acid (vitamin C) [Vitamin C] 500 mg Tablet 500 mg PO DAILY 0RF diphenhydramine HCl [Benadryl] 25 mg Capsule 25 mg PO BEDTIME PRN (Reason: Abdominal Discomfort) 0RF zinc sulfate 220 (50) mg Capsule 220 mg PO DAILY 0RF cholecalciferol (vitamin D3) [Vitamin D3] 2,000 unit Tablet 3,000 unit PO DAILY 0RF calcium carbonate 260 mg calcium (650 mg) Tablet,Chewable 260 mg PO DAILY 0RF tamsulosin 0.4 mg capsule 0.4 mg PO DAILY Qty: 30 0RF ondansetron HCl [Zofran] 4 mg tablet 4 mg PO Q8H Qty: 10 0RF Referrals: Shabbir Emanuel MD [Primary Care Provider] -
--- NOTE | 2021-05-23 08:29 | DI.CT.S_ITS ---
PROCEDURE: CT ABDOMEN PELVIS W CON INDICATIONS: back and suprapubic pain TECHNIQUE: After the administration of intravenous contrast, axial sections acquired from the lung bases to the pubic symphysis. Coronal and sagittal reformats were performed. For radiation dose reduction, the following was used: automated exposure control, adjustment of mA and/or kV according to patient size. COMPARISON: [facility], CT, CT KIDNEY URETER BLADDER (KUB), 11/05/2020, 16:35. FINDINGS: Image quality: Excellent. Lung bases: Unremarkable. Heart: No significant findings. ABDOMEN: Liver: Diffusely decreased hepatic density. Gallbladder: Unremarkable. Biliary ducts: Unremarkable. Pancreas: Unremarkable. Spleen: Unremarkable. Adrenal Glands: Unremarkable. Kidneys and Ureters: Bilateral renal cysts are present. Nonobstructing left inferior pole renal calculus measuring 15 mm. Cortical calcification involving the inferior pole right kidney laterally measuring 5 mm. No right hydronephrosis nor ureteral dilatation. There is mild left hydronephrosis and left ureteral dilatation. There is a 3 mm calculus at the left ureterovesical junction. Stomach and Bowel: Small hiatal hernia. Moderate thickening of the distal esophagus. Stomach, small bowel loops, and colon are unremarkable. Normal appendix. Peritoneum: No abnormal intraperitoneal fluid. No free air. Ventral Wall: No hernias. Abdominal Nodes: Mildly prominent portal caval lymph node measuring 12 mm, and peripancreatic lymph node measuring 12 mm, which are unchanged. Vessels: Aorta and inferior vena cava are normal in size. PELVIS: Pelvic Organs: Unremarkable. Bladder: Unremarkable. Pelvic Nodes: No enlarged lymph nodes. Miscellaneous: No hernias are seen. Bones: Unremarkable. IMPRESSION: 1. Left ureterovesical junction calculus associated with mild left hydronephrosis. 2. Nonobstructing bilateral intrarenal calcifications. 3. Thickening of the distal esophagus with hiatal hernia. Initial further assessment with endoscopy is recommended. 4. Mildly enlarged portal caval and peripancreatic lymph nodes are unchanged. Hepatic steatosis. Dictated by: Janet Jackson M.D. on 05/23/2021 at 10:12 Approved by: Janet Jackson M.D. on 05/23/2021 at 10:16
[2021-05-23] MEDS: MORPHINE 2 MG/ML INJ IV (09:03)
[2021-05-23] MEDS: SODIUM CHLORIDE 0.9% 1,000 ML 1000 ML IV (09:03)
[2021-05-23] MEDS: ONDANSETRON 4 MG/2 ML INJ IV (09:03)
[2021-05-23 09:15] LABS: Add Manual Diff / Slide Review NO; Basophils Absolute Auto 100 /uL (0-100); Basophils Percent Auto 0.7 % (0-2); Eosinophils Absolute Auto 300 /uL (0-450); Eosinophils Percent Auto 3.1 % (2-4); Hemoglobin 15.5 g/dL (13.5-17.5); Lymphocytes Absolute Auto 1700 /uL (1100-4500); Mean Corpuscular HGB Conc 34.5 % (30-36); Mean Corpuscular Hemoglobin 32.1 PG (26-34); Monocytes Absolute Auto 1100 /uL (0-900); Monocytes Percent Auto 10.1 % (3-14); Neutrophils Absolute Auto 7500 /uL (1500-7000); Neutrophils Percent Auto 70.1 % (50-75); Platelet Count 220 X10^3/uL (150-400); Red Blood Cell Count 4.83 X10^6/uL (4.5-5.9); Red Cell Distribution Width 13.4 % (11.6-14.8); White Blood Cell Count 10.7 X10^3/uL (4.5-11.0)
[2021-05-23 09:16] LABS: Appearance Urine UA CLEAR; Bilirubin Urine UA NEGATIVE (NEGATIVE); Color Urine UA YELLOW; Glucose Urine UA NEGATIVE (Negative); Ketones Urine UA NEGATIVE (NEGATIVE); Leukocyte Esterase Urine UA NEGATIVE (NEGATIVE); Nitrite Urine UA NEGATIVE (Negative); Occult Blood Urine UA 3+ (Negative); Protein Urine UA NEGATIVE (Negative); Urobilinogen Urine UA 0.2 E.U./dL (0.2)
[2021-05-23 09:27] LABS: Alanine Aminotransferase 49 IU/L (<50); Albumin 4.8 g/dL (3.5-5.0); Albumin Globulin Ratio 1.5 (1.0-2.8); Alkaline Phosphatase 78 U/L (38-126); Aspartate Aminotransferase 36 IU/L (17-59); BUN Creatinine Ratio 15.1 (6-22); Bilirubin Total 0.7 mg/dL (0.2-1.3); Blood Urea Nitrogen 13 mg/dL (9-20); Calcium 9.2 mg/dL (8.4-10.2); Carbon Dioxide 28 mmol/L (22-32); Chloride 103 mmol/L (98-107); Estimated Glomerular Filt Rate > 60 mL/min (>60); Globulin 3.3 g/dL (1.7-4.1); Glucose 140 mg/dL (80-110); HEMOLYSIS < 15 (0-50); Lipase 36 U/L (23-300); Potassium 3.7 mmol/L (3.4-5.1); Sodium 143 mmol/L (137-145); Total Protein 8.1 g/dL (6.3-8.2)
[2021-05-23 09:28] LABS: Bacteria Urine Many (>30); Culture Indicated Urine Cult Not Indicated; RBC Urine >100/HPF (0-5/HPF); Squamous Epithelial Cell Urine 1-5 /HPF (0-5/HPF); WBC Urine 1-5/HPF (0-5/HPF)
[2021-05-23] MEDS: HYDROMORPHONE 0.5 MG INJ IV (10:05)
[2021-05-23] MEDS: KETOROLAC 30 MG/ML VIAL 15 MG IV (10:44)
== END 2021-05-23 11:40 | disposition home or self-care (01) ==
PROVIDERS: Emergency Provider Emergency Medicine; PCP Family Medicine
DX: N20.0 Calculus of kidney (principal)
CPT/HCPCS: 36415; 74177; 80053; 81001; 83690; 85025; 96374; 96375; 99284; J1170; J1885; J2270; J2405; Q9967

== ENCOUNTER → 2021-06-27 15:26 | Outpatient (CLI) | payer OTHER, SELFPAY ==
--- NOTE | 2021-06-27 15:29 | DI.RAD.S_ITS ---
PROCEDURE: XR KUB INDICATIONS: kidney stone TECHNIQUE: One view of the abdomen acquired. COMPARISON: [facility], CR, XR KUB, 02/13/2021, 15:35. FINDINGS: Surgical changes and devices: None. Bowel: Bowel gas pattern is normal. Soft tissues: 1.4 x 0.8 cm calcification is again seen projecting in the region of left kidney. Faint calcifications are also noted projecting in right renal fossa and measures up to 5 mm in size.. Visualized solid organ contours appear normal in size. Bones: No suspicious bony lesions. IMPRESSION: Suggestion of bilateral renal stones unchanged in size and appearance from prior study. Dictated by: Brien Rodriguez M.D. on 06/27/2021 at 16:02 Approved by: Brien Rodriguez M.D. on 06/27/2021 at 16:03
== END ==
PROVIDERS: PCP Family Medicine; Referring Provider Specialist; Visit Provider Specialist
DX: N20.1 Calculus of ureter (principal)
CPT/HCPCS: 74018

== ENCOUNTER → 2022-03-25 15:25 | Outpatient (CLI) | payer OTHER, SELFPAY ==
[2022-03-25 15:47] LABS: Hemoglobin A1C% w Est Avg Glu 6.5 % (4.0-6.0)
[2022-03-25 15:57] LABS: Alanine Aminotransferase 51 IU/L (<50); Albumin 4.5 g/dL (3.5-5.0); Albumin Globulin Ratio 1.4 (1.0-2.8); Alkaline Phosphatase 82 U/L (38-126); Aspartate Aminotransferase 37 IU/L (17-59); BUN Creatinine Ratio 17.9 (6-22); Bilirubin Total 0.7 mg/dL (0.2-1.3); Blood Urea Nitrogen 12 mg/dL (9-20); Calcium 9.5 mg/dL (8.4-10.2); Carbon Dioxide 25 mmol/L (22-32); Chloride 102 mmol/L (98-107); Cholesterol 198 mg/dL (140-199); Estimated Glomerular Filt Rate > 60 mL/min (>60); Globulin 3.2 g/dL (1.7-4.1); Glucose 118 mg/dL (80-110); HDL Cholesterol 47 mg/dL (40-60); HEMOLYSIS < 15 (0-50); LDL Cholesterol Calculated 101 mg/dL (<100); Potassium 4.1 mmol/L (3.4-5.1); Sodium 138 mmol/L (137-145); Total Protein 7.7 g/dL (6.3-8.2); Triglycerides 248 mg/dL (35-150)
[2022-03-25 16:27] LABS: Prostate Specific Antigen Scrn 0.741 ng/mL (0.1-4.0)
[2022-03-25 17:02] LABS: Creatinine Urine Random 34.1 mg/dL
[2022-03-25 17:04] LABS: Microalbumi Creatinin Ratio Ur 20.5 ug/mg CR (<30); Microalbumin Urine Random 0.7 mg/dL (0-1.6)
== END ==
PROVIDERS: PCP Family Medicine; Referring Provider Family Medicine; Visit Provider Family Medicine
DX: E78.5 Hyperlipidemia, unspecified (principal); I10 Essential (primary) hypertension; R73.9 Hyperglycemia, unspecified; Z12.5 Encounter for screening for malignant neoplasm of prostate
CPT/HCPCS: 36415; 80053; 80061; 82043; 82570; 83036; G0103

== ENCOUNTER → 2022-10-10 14:55 | Outpatient (CLI) | payer OTHER, SELFPAY ==
[2022-10-10 15:28] LABS: Basophils Percent Auto 0.8 % (0-2); Hematocrit 46.2 % (41-53); Hemoglobin 16.1 g/dL (13.5-17.5); Lymphocytes Percent Auto 38.9 % (25-40); Mean Corpuscular HGB Conc 34.8 % (30-36); Mean Corpuscular Hemoglobin 31.9 PG (26-34); Mean Corpuscular Volume 91.7 fL (80-100); Monocytes Percent Auto 7.7 % (3-14); Neutrophils Percent Auto 47.6 % (50-75); Platelet Count 231 X10^3/uL (150-400); Red Blood Cell Count 5.04 X10^6/uL (4.5-5.9); Red Cell Distribution Width 13.1 % (11.6-14.8); White Blood Cell Count 7.9 X10^3/uL (4.5-11.0)
[2022-10-10 15:29] LABS: Add Manual Diff / Slide Review NO; Basophils Absolute Auto 100 /uL (0-100); Eosinophils Absolute Auto 400 /uL (0-450); Lymphocytes Absolute Auto 3100 /uL (1100-4500); Monocytes Absolute Auto 600 /uL (0-900); Neutrophils Absolute Auto 3800 /uL (1500-7000)
[2022-10-10 15:49] LABS: Alanine Aminotransferase 34 IU/L (<50); Albumin 4.6 g/dL (3.5-5.0); Albumin Globulin Ratio 1.5 (1.0-2.8); Alkaline Phosphatase 74 U/L (38-126); Aspartate Aminotransferase 30 IU/L (17-59); BUN Creatinine Ratio 14.5 (6-22); Blood Urea Nitrogen 10 mg/dL (9-20); Calcium 9.7 mg/dL (8.4-10.2); Carbon Dioxide 26 mmol/L (22-32); Chloride 103 mmol/L (98-107); Estimated Glomerular Filt Rate > 60 mL/min (>60); Globulin 3.1 g/dL (1.7-4.1); Glucose 125 mg/dL (80-110); HEMOLYSIS < 15 (0-50); Potassium 4.2 mmol/L (3.4-5.1); Sodium 137 mmol/L (137-145); Total Protein 7.7 g/dL (6.3-8.2)
[2022-10-10 16:39] LABS: Hemoglobin A1C% w Est Avg Glu 6.2 % (4.0-6.0)
== END ==
PROVIDERS: PCP Family Medicine; Referring Provider Family Medicine; Visit Provider Family Medicine
DX: G62.9 Polyneuropathy, unspecified (principal); I10 Essential (primary) hypertension; R73.9 Hyperglycemia, unspecified
CPT/HCPCS: 36415; 80053; 83036; 85025

== ENCOUNTER → 2023-03-29 08:18 | Outpatient (CLI) | payer OTHER, SELFPAY ==
[2023-03-29 09:11] LABS: Add Manual Diff / Slide Review NO; Basophils Absolute Auto 100 /uL (0-100); Basophils Percent Auto 0.8 % (0-2); Eosinophils Absolute Auto 300 /uL (0-450); Eosinophils Percent Auto 3.6 % (2-4); Hematocrit 45.2 % (41-53); Hemoglobin 15.7 g/dL (13.5-17.5); Lymphocytes Absolute Auto 2300 /uL (1100-4500); Lymphocytes Percent Auto 29.4 % (25-40); Mean Corpuscular HGB Conc 34.8 % (30-36); Mean Corpuscular Hemoglobin 31.9 PG (26-34); Mean Corpuscular Volume 91.6 fL (80-100); Monocytes Absolute Auto 700 /uL (0-900); Monocytes Percent Auto 8.7 % (3-14); Neutrophils Absolute Auto 4600 /uL (1500-7000); Neutrophils Percent Auto 57.5 % (50-75); Platelet Count 305 X10^3/uL (150-400); Red Blood Cell Count 4.94 X10^6/uL (4.5-5.9); Red Cell Distribution Width 12.8 % (11.6-14.8); White Blood Cell Count 7.9 X10^3/uL (4.5-11.0)
[2023-03-29 09:32] LABS: Alanine Aminotransferase 27 IU/L (<50); Albumin 4.6 g/dL (3.5-5.0); Albumin Globulin Ratio 1.3 (1.0-2.8); Alkaline Phosphatase 77 U/L (38-126); Aspartate Aminotransferase 30 IU/L (17-59); BUN Creatinine Ratio 18.9 (6-22); Bilirubin Total 0.9 mg/dL (0.2-1.3); Blood Urea Nitrogen 14 mg/dL (9-20); Calcium 9.5 mg/dL (8.4-10.2); Carbon Dioxide 26 mmol/L (22-32); Chloride 104 mmol/L (98-107); Cholesterol 188 mg/dL (140-199); Estimated Glomerular Filt Rate > 60 mL/min (>60); Globulin 3.6 g/dL (1.7-4.1); Glucose 132 mg/dL (80-110); HDL Cholesterol 42 mg/dL (40-60); HEMOLYSIS < 15 (0-50); LDL Cholesterol Calculated 122 mg/dL (<100); Potassium 4.4 mmol/L (3.4-5.1); Sodium 140 mmol/L (137-145); Total Protein 8.2 g/dL (6.3-8.2); Triglycerides 119 mg/dL (35-150)
[2023-03-29 09:39] LABS: Hemoglobin A1C% w Est Avg Glu 6.3 % (4.0-6.0)
[2023-03-29 10:00] LABS: Prostate Specific Antigen Scrn 1.12 ng/mL (0.1-4.0)
[2023-03-29 10:01] LABS: TSH w/ Reflex to FT4 0.69 uIU/mL (0.47-4.68)
[2023-03-29 11:29] LABS: Creatinine Urine Random 77.5 mg/dL
[2023-03-29 11:40] LABS: Microalbumin Urine Random < 0.6 mg/dL (0-1.6)
== END ==
LOC: LAB 08:19
PROVIDERS: PCP Family Medicine; Referring Provider Family Medicine; Visit Provider Family Medicine
DX: I10 Essential (primary) hypertension (principal); E55.9 Vitamin D deficiency, unspecified; R73.9 Hyperglycemia, unspecified; Z12.5 Encounter for screening for malignant neoplasm of prostate; N52.9 Male erectile dysfunction, unspecified; G62.9 Polyneuropathy, unspecified
CPT/HCPCS: 36415; 80053; 80061; 82043; 82570; 83036; 84443; 85025; G0103

== ENCOUNTER 2023-10-14 10:06 | Day surgery (SDC) | payer OTHER, SELFPAY ==
--- NOTE | 2023-10-14 10:32 | P.HP_ITS ---
History of Present Illness History of Present Illness Date Patient Seen: 10/14/23 Time Patient Seen: 10:32 Chief complaint: Colonoscopy Narrative: 73-year-old male here for screening colonoscopy. Personal history of colonic polyps last colonoscopy 219. No family history of colon cancer. No abdominal concerns today. [facility] Medical History Bilateral nephrolithiasis Nephrolithiasis Left nephrolithiasis Kidney stone on left side Seasonal allergies Fractures Mumps (~1969) Chicken pox (~1957) Tinnitus (~2016) Hearing loss (~2019) Erectile dysfunction Colon polyps (~2018) Vitamin D deficiency Peripheral neuropathy Hypertension (~1988) Surgical History Anesthesia History of colonoscopy History of hernia repair (~1992) Family History Father Cancer Mother Cancer Social History household members: spouse Smoking Status: Former smoker alcohol intake: never Meds Home Medications and Allergies Home Medications Medication Instructions Recorded Confirmed Type sildenafil 50 mg tablet 50 mg PO DAILY PRN sexual activity 04/17/23 10/14/23 Rx #30 tabs amlodipine 5 mg tablet 5 mg PO DAILY #90 tabs 08/26/23 10/14/23 Rx lisinopril 40 mg tablet 40 mg PO DAILY #90 tabs 08/26/23 10/14/23 Rx loperamide 2 mg tablet 8 mg PO BID 10/14/23 10/14/23 History Allergies Allergy/AdvReac Type Severity Reaction Status Date / Time No Known Drug Allergies Allergy Verified 10/14/23 10:47 Exam Narrative Exam Narrative: General adult man alert oriented no acute distress Chest nonlabored respiration Extremities warm well perfused Assessment & Plan Assessment and plan (1) Colon polyps: Qualifiers: Colon polyp type: unspecified Status: Acute Assessment & Plan narrative: The patient requires colorectal screening and colonoscopy is recommended. Technical details were discussed. Risks, benefits, alternatives explained. Risks including but not limited to myocardial infarction, aspiration, bleeding, pain, missed lesion, incomplete examination, need for further radiographic studies, intestinal injury, and need for major abdominal surgery were discussed. All questions were answered to their satisfaction, and they are in agreement with this plan. Time-Based Coding :: [TOTAL MINUTES] spent with patient and on the chart (including review of chart, obtaining history, exam, reviewing outside data, placing orders, documenting exam and treatment plan, and counseling patient) on [DATE].
[2023-10-14 10:57] VITALS: BP 169/89; PULSE 83; RESP 18; TEMP 36.1; O2SAT 97
[2023-10-14] MEDS: LACTATED RINGERS 1,000 ML 42 ML IV (11:07)
--- NOTE | 2023-10-14 11:46 | P.OP.COLON_ITS ---
Operative Date/Time/Diagnoses Date of procedure: 10/14/23 Time of procedure: 11:46 Pre-op diagnosis: Personal history of colonic polyps Procedure & Clinicians Study performed: Screening colonoscopy Same procedure as scheduled: Yes Indications: Screening Surgeon: Villa Fritz Procedure Notes Procedure in detail: The history and physical was performed/updated and the patient is ASA class is 2. The procedure was discussed in detail with the patient. Potential risks complications including infection, bleeding, missed diagnosis, perforation, need for surgery, and were explained. Their questions were answered and informed consent was obtained. Patient was brought to the procedure room and placed standard monitoring equipment. The patient's vital signs were monitored continuously throughout the entire procedure. Prior to starting time-out was performed. The patient was placed in the left lateral recumbent position. Procedural sedation was administered by anesthesia. Examination began with a thorough inspection of the perianal area there was no evidence of fissures, fistulae, external hemorrhoids or cutaneous malignancy. The colonoscopy scope was then placed into the anal canal and was advanced to the cecum, which was identified by the ileocecal valve, the appendiceal orifice and the confluence of the taenia. The scope was then slowly withdrawn examining colon thoroughly in all directions, irrigating it of any residual stool. The scope was retroflexed within the rectum The patient tolerated the procedure well. They will be discharged once criteria are met. The prep was of good/excellent quality. The withdrawl time was 7 minutes. FINDINGS * Unremarkable colonoscopy. Normal healthy colonic mucosa without mass or polyps. Specimen(s): none sent Impression: Normal colonoscopy Post-procedure Plan for aftercare: No need for further colonoscopy unless symptomatic Disposition: same day surgery
[2023-10-14 12:10] VITALS: BP 103/67; PULSE 80; RESP 15; TEMP 37.2; O2SAT 95
[2023-10-14 12:15] VITALS: BP 104/67; PULSE 75; RESP 15; TEMP 36.7; O2SAT 95
[2023-10-14 12:21] VITALS: BP 114/67; PULSE 68; RESP 16; TEMP 37.2; O2SAT 95
[2023-10-14 12:36] VITALS: BP 125/75; PULSE 75; RESP 18; TEMP 37.1; O2SAT 99
== END 2023-10-14 13:00 | disposition home or self-care (01) ==
PROVIDERS: PCP Family Medicine; Referring Provider Surgery; Visit Provider Surgery
PROC: 0DJD8ZZ Inspection of Lower Intestinal Tract, Via Natural or Artificial Opening Endoscopic (ICD-10-PCS; CPT 45378; principal; 2023-10-14 11:15)
DX: Z12.11 Encounter for screening for malignant neoplasm of colon (principal); Z86.010 Personal history of colon polyps
CPT/HCPCS: 45378; J2704

== ENCOUNTER → 2024-07-12 16:25 | Outpatient (ROUT) | payer OTHER, SELFPAY ==
[2024-07-12 16:57] LABS: Add Manual Diff / Slide Review NO; Basophils Absolute Auto 100 /uL (0-100); Basophils Percent Auto 1.1 % (0-2); Eosinophils Absolute Auto 300 /uL (0-450); Eosinophils Percent Auto 4.2 % (2-4); Hematocrit 47.1 % (41-53); Hemoglobin 16.4 g/dL (13.5-17.5); Lymphocytes Absolute Auto 2800 /uL (1100-4500); Lymphocytes Percent Auto 36.3 % (25-40); Mean Corpuscular HGB Conc 34.8 % (30-36); Mean Corpuscular Hemoglobin 32.2 PG (26-34); Mean Corpuscular Volume 92.5 fL (80-100); Monocytes Absolute Auto 700 /uL (0-900); Monocytes Percent Auto 8.5 % (3-14); Neutrophils Absolute Auto 3900 /uL (1500-7000); Neutrophils Percent Auto 49.9 % (50-75); Platelet Count 220 X10^3/uL (150-400); Red Blood Cell Count 5.09 X10^6/uL (4.5-5.9); Red Cell Distribution Width 13.2 % (11.6-14.8); White Blood Cell Count 7.9 X10^3/uL (4.5-11.0)
[2024-07-12 17:04] LABS: Hemoglobin A1C% w Est Avg Glu 6.1 % (4.0-6.0)
[2024-07-12 17:18] LABS: Alanine Aminotransferase 34 IU/L (<50); Albumin 4.8 g/dL (3.5-5.0); Albumin Globulin Ratio 1.6 (1.0-2.8); Alkaline Phosphatase 81 U/L (38-126); Aspartate Aminotransferase 34 IU/L (17-59); BUN Creatinine Ratio 18.6 (6-22); Bilirubin Total 1.2 mg/dL (0.2-1.3); Blood Urea Nitrogen 13 mg/dL (9-20); Calcium 9.8 mg/dL (8.4-10.2); Carbon Dioxide 24 mmol/L (22-32); Chloride 103 mmol/L (98-107); Estimated Glomerular Filt Rate > 60 mL/min (>60); Glucose 113 mg/dL (70-99); HEMOLYSIS 43 (0-50); Potassium 4.5 mmol/L (3.4-5.1); Sodium 137 mmol/L (137-145); Total Protein 7.8 g/dL (6.3-8.2)
== END ==
LOC: LAB 16:25
PROVIDERS: PCP Family Medicine; Visit Provider Physician Assistant
DX: R19.7 Diarrhea, unspecified (principal)
CPT/HCPCS: 80053; 83036; 85025

== ENCOUNTER 2024-10-18 06:47 | Emergency (ER) | payer OTHER, SELFPAY ==
[2024-10-18] VITALS (8 sets, daily range): BP systolic 149–205; BP diastolic 72–91; PULSE 60–80; RESP 16–20; TEMP 36.1; O2SAT 92–100; BMI 29.1
--- NOTE | 2024-10-18 07:36 | ED.GENADULT ---
HPI - General Adult General Chief complaint: Recheck/Abnormal Lab/Rx Stated complaint: Possible reaction to new meds Time Seen by Provider: 10/18/24 07:04 Source: patient Mode of arrival: Ambulatory History of Present Illness HPI narrative: Patient is a 74-year-old male history of hypertension peripheral neuropathy recently started on Zoloft presenting today with not feeling quite right. He has taken Zoloft for the last 4 days he noticed that he is clenching his jaw a little bit more he does not have any muscle aches or pains. Sometimes he notices his right arm is tight but really has no weakness no chest pain no shortness a breath no nausea or vomiting. He just generally feels a little bit off. Not dizzy not lightheaded. No other symptoms. He also started tadalafil daily. Related Data Previous Rx's ?Medication ?Instructions ?Recorded amlodipine 5 mg tablet 5 mg PO DAILY #90 tabs 10/05/24 dextroamphetamine-amphetamine 10 10 mg PO BID #60 tabs 10/05/24 mg tablet (Adderall) lisinopril 40 mg tablet 40 mg PO DAILY #90 tabs 10/05/24 sertraline 50 mg tablet (Zoloft) 50 mg PO DAILY #90 tabs 10/05/24 tadalafil 5 mg tablet 5 mg PO DAILY #90 tabs 10/05/24 Allergies Allergy/AdvReac Type Severity Reaction Status Date / Time No Known Drug Allergies Allergy Verified 10/05/24 14:32 Patient History Medical History (Updated 10/18/24 @ 08:16 by Sharon Sloan DO) ADHD (attention deficit hyperactivity disorder) Bilateral nephrolithiasis Nephrolithiasis Left nephrolithiasis Kidney stone on left side Seasonal allergies Fractures Mumps (~1969) Chicken pox (~1957) Tinnitus (~2016) Hearing loss (~2019) Erectile dysfunction Colon polyps (~2018) Vitamin D deficiency Peripheral neuropathy Hypertension (~1988) Surgical History Anesthesia History of colonoscopy History of hernia repair (~1992) Family History Father Cancer Mother Cancer Social History household members: spouse alcohol intake: never alcohol intake frequency: 0-2 drinks per day Exam Initial Vital Signs Initial Vital Signs: Vital Signs Pulse Rate 66 10/18/24 06:59 Blood Pressure 205/88 H 10/18/24 06:59 Pulse Oximetry 96 10/18/24 06:59 GENERAL: Well-appearing, well-nourished and in no acute distress. HEENT: Head atraumatic,EOMI, pupils reactive, face symmetric, moist mucous membranes CARDIOVASCULAR: Regular rate and rhythm without murmurs, rubs or gallops. RESPIRATORY: Breath sounds equal bilaterally, no wheezes rales or rhonchi. ABDOMEN: Soft, nontender. Normoactive bowel sounds all 4 quadrants. No guarding or rebound. EXTREMITIES: Normal range of motion, no clubbing or edema. Neurovascularly intact NEUROLOGICAL: Alert and oriented x4.Normal gait and speech. Cranial nerves II through XII grossly intact. SKIN: Warm, dry, no laceration, no petechiae, no rashes or lesions. Course Orders Ordered: ED Orders 10/18/24 07:36 EKG-12 Lead Stat Vital Signs Vital signs: Vital Signs - 8 hr 10/18/24 06:59 10/18/24 06:59 10/18/24 07:00 Temperature Pulse Rate 66 65 Respiratory Rate Blood Pressure 205/88 H Pulse Oximetry 96 94 Oxygen Delivery Method Oxygen Flow Rate 10/18/24 07:00 10/18/24 07:01 10/18/24 07:30 Temperature 97 F L Pulse Rate 70 74 Respiratory Rate 16 Blood Pressure 190/91 H 205/88 H Pulse Oximetry 100 94 Oxygen Delivery Method Room Air Oxygen Flow Rate 10/18/24 07:30 10/18/24 08:00 10/18/24 08:00 Temperature Pulse Rate 60 Respiratory Rate Blood Pressure 167/80 H 149/72 H Pulse Oximetry 92 Oxygen Delivery Method Oxygen Flow Rate 10/18/24 08:19 10/18/24 08:19 10/18/24 08:33 Temperature Pulse Rate 67 Respiratory Rate Blood Pressure 167/77 H 167/77 H Pulse Oximetry 93 Oxygen Delivery Method Oxygen Flow Rate 10/18/24 08:44 Temperature Pulse Rate 80 Respiratory Rate 20 Blood Pressure 167/76 H Pulse Oximetry 95 Oxygen Delivery Method Room Air Oxygen Flow Rate 0 Medical Decision Making ECG Data Interpretation: Normal sinus rhythm rate 69 [place] interval 172 QRS [address] changes MDM Narrative Medical decision making narrative: Patient 74-year-old male presenting today with unknown symptoms. He is not having muscle twitching tremors does not have muscle aches has no chest pain he has no prolonged QTC on his EKGs really just feels a little bit off. Thinks it maybe due to Zoloft. He is not having any rash or anaphylactic symptoms. At this time discussed with him risks versus benefits of continuing medication. It may take some time for his body to get used to it. Recommend he talk to his primary care provider about this Discharge Plan Departure Patient Disposition: Home Clinical Impression: Medication reaction Instructions: Sertraline Activity Restrictions/Additional Instructions: *You have been diagnosed with medication reaction *What to do: At this time discuss with your primary care provider in regards to continuing medication versus stopping *Continue to take medications as directed *Follow up with your primary care provider in 2-3 days or call [phone] *Return to ER if you should have increasing muscle aches pain chest pain dizziness persistent vomiting or any new, worsening or concerning symptoms Prescriptions: No Action amlodipine 5 mg tablet 5 mg PO DAILY Qty: 90 3RF lisinopril 40 mg tablet 40 mg PO DAILY Qty: 90 3RF sertraline [Zoloft] 50 mg tablet 50 mg PO DAILY Qty: 90 0RF dextroamphetamine-amphetamine [Adderall] 10 mg tablet 10 mg PO BID Qty: 60 0RF Rx Instructions: administer doses at least 4-6 hours apart. tadalafil 5 mg tablet 5 mg PO DAILY Qty: 90 3RF Referrals: Shabbir Emanuel MD [Primary Care Provider, Family Practice] Stand Alone Forms: Patient Portal/API
--- NOTE | 2024-10-18 08:09 | EKG_ITS ---
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
--- NOTE | 2024-10-18 08:37 | PC.NURSE ---
Patient evaluated by ED physician, and he is cleared for discharge home today. Patient acknowledges understanding of medication reaction and decides he wants to continue taking zoloft and will follow up with PCP. BP rechecked and SBP trending down from 200's to 160's/ . He ambulates in the hallway with steady gait, denies dizziness, chest pain, SOB, or other symptoms. He verbalizes that he will check up with PCP in a couple of days as well as return to ED if symptoms worsen. wafer fabrication technician escorted patient to hospital entrance for discharge at approximately 0840 a.m.
== END 2024-10-18 20:45 | disposition home or self-care (01) ==
PROVIDERS: Emergency Provider Emergency Medicine; PCP Family Medicine
DX: R68.89 Other general symptoms and signs (principal); T43.225A Adverse effect of selective serotonin reuptake inhibitors, initial encounter
CPT/HCPCS: 93005; 99281; 99283